=== PATIENT | female | born 1985 | race Caucasian/White ===

== ENCOUNTER 2020-11-02 16:36 | Emergency (ER) | payer OTHER ==
[~2020-11-02] VITALS: Ht 160 cm; Wt 86.4 kg
[2020-11-02] MEDS ORDERED: LORazepam 1 MG TABLET PO ONE (19:15)
[2020-11-02] MEDS ORDERED: ACETAMINOPHEN 500 MG TABLET PO ONE (19:45)
[2020-11-02 20:20] VITALS: BP 122/71
== END 2020-11-02 20:25 | disposition home or self-care (01) ==
LOC: EMS 16:44
DX: S00.83XA Contusion of other part of head, initial encounter (principal); S90.122A Contusion of left lesser toe(s) without damage to nail, initial encounter; F43.20 Adjustment disorder, unspecified; Y04.2XXA Assault by strike against or bumped into by another person, initial encounter; Y93.89 Activity, other specified; Y92.89 Other specified places as the place of occurrence of the external cause; Y99.8 Other external cause status
CPT/HCPCS: 99285; Z7502; Z7610